=== PATIENT | male | born 2005 | race Asian ===

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

== ENCOUNTER 2024-01-12 18:50 | Emergency (ER) | payer OTHER ==
--- NOTE | 2024-01-12 19:25 | ED Physician Documentation ---
PD HPI HEENT - Stated complaint Stated Complaint: TOOTH PX - Chief complaint Chief Complaint: Heent - History obtained from History obtained from: Patient, Family (dad) - Additional information Additional information: 17-year-old boy, previously healthy presents with right lower dental aching radiating to the right taoist for the past 4 to 5 days. Denies fever, swelling, difficulty swallowing or speaking. Patient did see his dentist last week and then again yesterday and had some dental instrumentation including crown placement and removal. He states he has had relief of pain with equate gel on the affected area. PD PAST MEDICAL HISTORY - Past Medical History Past Medical History: No Cardiovascular: None Respiratory: None Neuro: None Endocrine/Autoimmune: None GI: None : None HEENT: None Psych: None Musculoskeletal: None Derm: None - Past Surgical History Past Surgical History: No - Present Medications Home Medications: Ambulatory Orders Medication Instructions Recorded Confirmed Cetirizine [ZyrTEC] 10 mg PO DAILY 08/05/17 06/21/22 Ketorolac [Toradol] 10 mg PO Q6H PRN #20 tablet 01/12/24 - Allergies Allergies/Adverse Reactions: Allergies Allergy/AdvReac Type Severity Reaction Status Date / Time amoxicillin trihydrate * Allergy Intermediate Hives Verified 01/12/24 19:00 [From Augmentin] potassium clavulanate * Allergy Intermediate Hives Verified 01/12/24 19:00 [From Augmentin] - Social History Does the pt smoke?: No Smoking Status: Never smoker Does the pt drink ETOH?: No Does the pt have substance abuse?: No - Immunizations Immunizations are current?: Yes - POLST Patient has POLST: No PD ED PE NORMAL - Vitals Vital signs reviewed: Yes - General General: Alert and oriented X 3, No acute distress, Well developed/nourished - HEENT HEENT: Atraumatic, PERRL, EOMI, Ears normal, Moist mucous membranes, Pharynx benign, Dentition benign - Neck Neck: Supple, no meningeal sign, No adenopathy Results - Vitals Vitals: Vital Signs - 24 hr 01/12/24 18:54 Temperature 36.5 C Heart Rate 69 Respiratory 18 Rate Blood Pressure 151/77 H O2 Saturation 100 Oxygen O2 Source Room air PD Medical Decision Making - ED course ED course: 18-year-old boy with benign appearance presents with dental pain, improving with oral Toradol. No visible swelling or signs of infection. Symptomatic care discussed and plan is for him to follow-up outpatient with his dentist and electrical and instrument technician. Return precautions given. Departure - Departure Disposition: Home, Self Care Clinical Impression: Tooth pain, Facial pain Condition: Stable Instructions: ED Tooth Pain Prescriptions: Ketorolac [Toradol] 10 mg PO Q6H PRN #20 tablet PRN Reason: Pain Comments: You were seen in the emergency department for Dental pain radiating up the face. Please take Toradol as prescribed as needed. Prescription sent to [facility] in [place]. You can follow-up with your dentist as well. Please follow-up with your primary care provider and return to the emergency department if you have any new or worsening symptoms or other concerns.
[2024-01-12] MEDS: KETOROLAC 10 MG TABLET PO STA (19:44)
[2024-01-12 19:53] VITALS: BP 140/78; O2SAT 98
== END 2024-01-12 19:46 | disposition home or self-care (01) ==
LOC: ED 18:50
DX: K08.89 Other specified disorders of teeth and supporting structures (principal); R51.9 Headache, unspecified
CPT/HCPCS: 99283; A9270